=== PATIENT | female | born 1995 | race Two or more races ===

== ENCOUNTER 2016-05-14 21:48 | Emergency (ER) | payer OTHER ==
[~2016-05-14] VITALS: Ht 160 cm; Wt 49.5 kg
[~2016-05-14 21:48] MED LIST: BACTRIM,SEPT1 TABLET PO; BENTYL10 MG PO; CEFDINIR300 MG PO; DELTASONE20 M1 PO; DICYCLOMINE HCL20 MG PO; FERROUS GLUCON324 MG PO; IBUPROFEN800 MG PO; KEFLEX500 MG PO; MACROBID100 MG PO; NOHOMEMEDS; NORCO 5/3251 TABLET PO; PENTASA250 MG PO; PENTASA500 MG PO; PERCOCET 5/31 TABLET PO; PREDNISONE10 MG PO; PRENATAL TABLE1 EAC3 PO; PRENATAL VITAM1 EAC7 PO; TYLENOL EXTRA500 MG PO; TYLENOL PM1 CAPLET PO; TYLENOL WITH C1 EACH PO; ZOFRAN ODT4 MG PO; ZOFRAN4 MG PO
[2016-05-14 22:24] LABS: HEMATOCRIT 36.6 % (36.0-46.0); MCH 30.4 PG (29.0-34.0); MCHC 34.2 G/DL (30.0-36.0); MCV 89.1 FL (83-99); MEAN PLAT.VOLUME 8.4 uM^3 (9.5-12.4); PLATELET COUNT 388 K/uL (156-360); RBC DIS.WIDTH-CV 12.5 % (11.8-14.6); RBC DIS.WIDTH-SD 39.8 % (39-53); RED BLOOD COUNT 4.11 M/uL (3.80-5.20); WHITE BLOOD COUNT 6.7 K/uL (4.1-10.2)
[2016-05-14 22:33] LABS: CHLORIDE 103 mEq/L (99-109); POTASSIUM 3.9 mEq/L (3.7-5.4); SODIUM 135 mEq/L (136-147)
[2016-05-14 22:35] LABS: GLUCOSE 106 mg/dL (70-99)
[2016-05-14 22:36] LABS: ANION GAP 8 MEQ/L (2-14)
[2016-05-14 22:37] LABS: TOTAL BILIRUBIN 0.3 mg/dL (0.0-1.0)
[2016-05-14 22:39] LABS: ALKALINE PHOSPHATASE 49 IU/L (3-129); GFR ESTIMATE (CALCULATED) > 59 mL/min/
[2016-05-14 22:40] LABS: UREA NITROGEN (BUN) 8 mg/dL (9-23)
[2016-05-14 22:47] LABS: QUANTITATIVE HCG < 4.0 MIU/ML
[2016-05-14 23:26] LABS: BILIRUBIN NEGATIVE; BLOOD NEGATIVE; COLOR YELLOW ((YELLOW)); GLUCOSE (STRIP) NEGATIVE; KETONES NEGATIVE; LEUKOCYTES NEGATIVE; NITRITE NEGATIVE; PH, URINE 6.5 (5-8); PROTEIN (STRIP) TRACE; SPECIFIC GRAVITY 1.032 (1.000-1.030)
[2016-05-14 23:28] LABS: ADD MIUA? NO; UCUL ADDED? NO
[2016-05-15] MEDS ORDERED: MIRALAX17 GM PO (00:22)
[2016-05-15] MEDS ORDERED: TRAMADOL HCL50 MG PO (00:22)
[2016-05-15 00:40] VITALS: BP 122/71
== END 2016-05-15 00:42 | disposition home or self-care (01) ==
LOC: EME 21:48
DX: R10.30 Lower abdominal pain, unspecified (principal); T18.3XXA Foreign body in small intestine, initial encounter; K50.90 Crohn's disease, unspecified, without complications; F17.200 Nicotine dependence, unspecified, uncomplicated
CPT/HCPCS: 74020; 80053; 81003; 84702; 85027; 99281; 99284

== ENCOUNTER 2016-07-05 20:22 | Inpatient (IN) | payer OTHER ==
[~2016-07-05] VITALS: Ht 157.5 cm; Wt 46.0 kg
[~2016-07-05 20:22] MED LIST changes: +MIRALAX17 GM PO; +TRAMADOL HCL50 MG PO
[2016-07-05 20:56] LABS: ADD MIUA? YES; BILIRUBIN NEGATIVE; BLOOD NEGATIVE; COLOR YELLOW ((YELLOW)); GLUCOSE (STRIP) NEGATIVE; KETONES NEGATIVE; LEUKOCYTES NEGATIVE; NITRITE NEGATIVE; PROTEIN (STRIP) 30; SPECIFIC GRAVITY 1.019 (1.000-1.030); UROBILINOGEN 0.2 MG/DL (0.2-1.0)
[2016-07-05] MEDS ORDERED: PREDNISONE20 MG PO (21:03)
[2016-07-05 21:04] LABS: HEMATOCRIT 41.7 % (36.0-46.0); MCHC 34.3 G/DL (30.0-36.0); MCV 90.5 FL (83-99); MEAN PLAT.VOLUME 7.9 uM^3 (9.5-12.4); PLATELET COUNT 465 K/uL (156-360); RBC DIS.WIDTH-CV 12.7 % (11.8-14.6); RBC DIS.WIDTH-SD 41.3 % (39-53); RED BLOOD COUNT 4.61 M/uL (3.80-5.20); WHITE BLOOD COUNT 18.7 K/uL (4.1-10.2)
[2016-07-05 21:09] LABS: BACTERIA RARE /HPF; EPITHELIAL CELLS 1+ /HPF; MUCUS TRACE /LPF; RED BLOOD CELLS 0-5 /HPF (0-5); UCUL ADDED? NO; WHITE BLOOD CELLS 0-5 /HPF (0-5)
[2016-07-05 21:12] LABS: CHLORIDE 102 mEq/L (99-109); POTASSIUM 4.6 mEq/L (3.7-5.4); SODIUM 137 mEq/L (136-147)
[2016-07-05 21:14] LABS: GLUCOSE 110 mg/dL (70-99)
[2016-07-05 21:15] LABS: ANION GAP 10 MEQ/L (2-14)
[2016-07-05 21:16] LABS: TOTAL BILIRUBIN 0.3 mg/dL (0.0-1.0)
[2016-07-05 21:17] LABS: ALKALINE PHOSPHATASE 45 IU/L (3-129)
[2016-07-05 21:18] LABS: GFR ESTIMATE (CALCULATED) > 59 mL/min/
[2016-07-05 21:19] LABS: UREA NITROGEN (BUN) 7 mg/dL (9-23)
[2016-07-05 21:36] LABS: QUANTITATIVE HCG < 4.0 MIU/ML
[2016-07-06 02:06] VITALS: BP 117/75
[2016-07-06 07:07] VITALS: BP 121/75
[2016-07-06 09:07] LABS: EOSINOPHIL (%) 0 % (0-5); HEMATOCRIT 43.4 % (36.0-46.0); IMMATURE GRANULOCYTE (%) 0.5 % (0.0-0.7); IMMATURE GRANULOCYTE COUNT 0.1 K/uL; MCH 30.2 PG (29.0-34.0); MCHC 33.4 G/DL (30.0-36.0); MCV 90.4 FL (83-99); MEAN PLAT.VOLUME 8.3 uM^3 (9.5-12.4); MONOCYTE (%) 8.3 % (3-12); MONOCYTE COUNT 1.2 K/uL (0-0.8); NEUTROPHIL (%) 77.8 % (45-76); NEUTROPHIL COUNT 11.4 K/uL (1.8-6.4); PLATELET COUNT 448 K/uL (156-360); RBC DIS.WIDTH-CV 12.9 % (11.8-14.6); RBC DIS.WIDTH-SD 42.2 % (39-53); WHITE BLOOD COUNT 14.7 K/uL (4.1-10.2)
[2016-07-06 09:27] LABS: ANION GAP 9 MEQ/L (2-14); CHLORIDE 98 MEQ/L (99-109); POTASSIUM 5.2 MEQ/L (3.7-5.4); SAMPLE HEMOLYSIS CHECK 0; SAMPLE ICTERIC CHECK 0; SAMPLE LIPEMIA CHECK 0; SODIUM 131 MEQ/L (136-147); TOTAL BILIRUBIN 0.5 MG/DL (0.0-1.0)
[2016-07-06 09:33] LABS: ALKALINE PHOSPHATASE 44 IU/L (3-129); GFR ESTIMATE (CALCULATED) > 59 mL/min/; GLUCOSE 90 mg/dL (70-99); UREA NITROGEN (BUN) 7 mg/dL (9-23)
[2016-07-06 11:38] VITALS: BP 119/72
[2016-07-06 15:54] VITALS: BP 112/71
[2016-07-06 23:15] VITALS: BP 108/55
[2016-07-07 03:34] VITALS: BP 106/59
[2016-07-07 07:10] VITALS: BP 108/62
[2016-07-07 11:37] VITALS: BP 117/63
[2016-07-07 15:49] VITALS: BP 113/69
[2016-07-07 19:34] VITALS: BP 108/67
[2016-07-07 21:43] LABS: ADD MIUA? YES; BILIRUBIN NEGATIVE; BLOOD NEGATIVE; COLOR YELLOW ((YELLOW)); GLUCOSE (STRIP) NEGATIVE; KETONES 5; LEUKOCYTES TRACE; NITRITE NEGATIVE; PROTEIN (STRIP) NEGATIVE; SPECIFIC GRAVITY 1.005 (1.000-1.030); UROBILINOGEN 0.2 MG/DL (0.2-1.0)
[2016-07-07 21:57] LABS: BACTERIA RARE /HPF; EPITHELIAL CELLS RARE /HPF; MUCUS TRACE /LPF; RED BLOOD CELLS 0-5 /HPF (0-5); WHITE BLOOD CELLS 0-5 /HPF (0-5)
[2016-07-07 23:36] VITALS: BP 102/58
[2016-07-08 03:22] VITALS: BP 100/57
[2016-07-08 06:48] LABS: EOSINOPHIL (%) 0 % (0-5); IMMATURE GRANULOCYTE (%) 0.7 % (0.0-0.7); IMMATURE GRANULOCYTE COUNT 0.1 K/uL; INSTRUMENT ABS NEUTROPHIL CT 9.1 K/uL; LYMPHOCYTE COUNT 0.7 K/uL (1.0-2.8); MCH 30.8 PG (29.0-34.0); MCHC 33.1 G/DL (30.0-36.0); MCV 92.8 FL (83-99); MEAN PLAT.VOLUME 8.1 uM^3 (9.5-12.4); MONOCYTE (%) 10.8 % (3-12); MONOCYTE COUNT 1.2 K/uL (0-0.8); NEUTROPHIL (%) 81.8 % (45-76); NEUTROPHIL COUNT 9.1 K/uL (1.8-6.4); PLATELET COUNT 354 K/uL (156-360); RBC DIS.WIDTH-CV 12.7 % (11.8-14.6); RBC DIS.WIDTH-SD 43.5 % (39-53); WHITE BLOOD COUNT 11.1 K/uL (4.1-10.2)
[2016-07-08 06:51] LABS: RED BLOOD COUNT 3.77 M/uL (3.80-5.20)
[2016-07-08 07:18] LABS: ALKALINE PHOSPHATASE 35 IU/L (3-129); ANION GAP 6 MEQ/L (2-14); CHLORIDE 104 MEQ/L (99-109); GFR ESTIMATE (CALCULATED) > 59 mL/min/; GLUCOSE 96 mg/dL (70-99); POTASSIUM 4.5 MEQ/L (3.7-5.4); SAMPLE HEMOLYSIS CHECK 0; SAMPLE ICTERIC CHECK 0; SAMPLE LIPEMIA CHECK 0; SODIUM 136 MEQ/L (136-147); TOTAL BILIRUBIN 0.4 MG/DL (0.0-1.0); UREA NITROGEN (BUN) 7 mg/dL (9-23)
[2016-07-08 07:48] VITALS: BP 103/55
[2016-07-08 11:25] VITALS: BP 96/52
[2016-07-08 16:25] VITALS: BP 104/59
[2016-07-08 23:42] VITALS: BP 100/58
[2016-07-09 07:30] VITALS: BP 101/59
[2016-07-09 07:43] LABS: EOSINOPHIL (%) 0.1 % (0-5); HEMATOCRIT 33.8 % (36.0-46.0); IMMATURE GRANULOCYTE (%) 0.7 % (0.0-0.7); IMMATURE GRANULOCYTE COUNT 0.1 K/uL; LYMPHOCYTE COUNT 0.9 K/uL (1.0-2.8); MCH 30.5 PG (29.0-34.0); MCHC 32.5 G/DL (30.0-36.0); MCV 93.6 FL (83-99); MEAN PLAT.VOLUME 8.1 uM^3 (9.5-12.4); MONOCYTE (%) 9.3 % (3-12); MONOCYTE COUNT 1.1 K/uL (0-0.8); NEUTROPHIL (%) 82.3 % (45-76); PLATELET COUNT 304 K/uL (156-360); RBC DIS.WIDTH-CV 12.8 % (11.8-14.6); RBC DIS.WIDTH-SD 44.1 % (39-53); RED BLOOD COUNT 3.61 M/uL (3.80-5.20); WHITE BLOOD COUNT 12.2 K/uL (4.1-10.2)
[2016-07-09 07:58] LABS: ALKALINE PHOSPHATASE 29 IU/L (3-129); ANION GAP 7 MEQ/L (2-14); CHLORIDE 104 MEQ/L (99-109); GFR ESTIMATE (CALCULATED) > 59 mL/min/; GLUCOSE 112 mg/dL (70-99); MAGNESIUM 1.9 mg/dl (1.3-2.7); POTASSIUM 4.3 MEQ/L (3.7-5.4); SAMPLE HEMOLYSIS CHECK 0; SAMPLE ICTERIC CHECK 0; SAMPLE LIPEMIA CHECK 0; SODIUM 137 MEQ/L (136-147); TOTAL BILIRUBIN 0.3 MG/DL (0.0-1.0); UREA NITROGEN (BUN) 5 mg/dL (9-23)
[2016-07-09 16:00] VITALS: BP 90/50
[2016-07-09 23:01] VITALS: BP 98/63
[2016-07-10 07:20] VITALS: BP 95/61
[2016-07-10 15:35] VITALS: BP 150/95
[2016-07-10 17:02] VITALS: BP 96/57
[2016-07-10] MEDS ORDERED: PREDNISONE20 MG PO (18:02)
[2016-07-10] MEDS ORDERED: PENTASA250 MG PO (18:04)
== END 2016-07-10 18:58 | disposition home or self-care (01) | DRG 330 ==
LOC: EME 20:22 → EDOF 07-06 00:52 → 2EAST 07-06 00:52
PROVIDERS: Surgery
DX: T18.3XXA Foreign body in small intestine, initial encounter (principal); K50.012 Crohn's disease of small intestine with intestinal obstruction; K56.5 Intestinal adhesions [bands] with obstruction (postinfection); E87.1 Hypo-osmolality and hyponatremia; E87.8 Other disorders of electrolyte and fluid balance, not elsewhere classified; Z79.52 Long term (current) use of systemic steroids; F17.200 Nicotine dependence, unspecified, uncomplicated; G89.18 Other acute postprocedural pain
CPT/HCPCS: 71010; 71020; 74177; 80053; 81003; 83735; 84100; 84702; 85025; 85027; 88300; 88305; 88307; 99281; 99285; J0330; J0744; J1100; J1170; J1650; J1720; J1885; J2175; J2270; J2405; J2550; J2710; J3010; J3480; J7030; J7120; J7512; S0030

== ENCOUNTER 2016-12-23 00:15 | Emergency (ER) | payer OTHER ==
[~2016-12-23] VITALS: Ht 160 cm; Wt 50.2 kg
[~2016-12-23 00:15] MED LIST changes: +PREDNISONE20 MG PO
[2016-12-23 00:41] LABS: ADD MIUA? YES; BILIRUBIN NEGATIVE; BLOOD NEGATIVE; COLOR YELLOW ((YELLOW)); GLUCOSE (STRIP) NEGATIVE; KETONES NEGATIVE; LEUKOCYTES NEGATIVE; NITRITE NEGATIVE; PROTEIN (STRIP) 30
[2016-12-23 00:49] LABS: BACTERIA RARE /HPF; EPITHELIAL CELLS 1+ /HPF; MUCUS 4+ /LPF; UCUL ADDED? NO; WHITE BLOOD CELLS 0-5 /HPF (0-5)
[2016-12-23 03:52] VITALS: BP 95/64
[2016-12-23 05:37] LABS: CANDIDA DNA PROBE NEGATIVE; GARDNERELLA DNA PROBE POSITIVE; INTERNAL CONTROL VALID? YES
[2016-12-25 12:07] LABS: CHLAMYDIA TRACHOMATIS NEGATIVE; NEISSERIA GONORRHOEAE NEGATIVE
== END 2016-12-23 03:53 | disposition home or self-care (01) ==
LOC: EME 00:15
PROVIDERS: Physician Assistant
DX: T19.2XXA Foreign body in vulva and vagina, initial encounter (principal); K50.90 Crohn's disease, unspecified, without complications; F17.200 Nicotine dependence, unspecified, uncomplicated
CPT/HCPCS: 81003; 87210; 87480; 87491; 87510; 87591; 87660

== ENCOUNTER 2017-02-09 21:41 | Emergency (ER) | payer OTHER ==
[~2017-02-09] VITALS: Ht 160 cm; Wt 49.6 kg
[2017-02-09 23:11] LABS: ADD MIUA? YES; BILIRUBIN SMALL; BLOOD NEGATIVE; COLOR YELLOW ((YELLOW)); GLUCOSE (STRIP) NEGATIVE; KETONES 5; LEUKOCYTES SMALL; NITRITE NEGATIVE; PROTEIN (STRIP) 30; SPECIFIC GRAVITY 1.031 (1.000-1.030)
[2017-02-09 23:47] LABS: BACTERIA 1+ /HPF; EPITHELIAL CELLS 1+ /HPF; MUCUS 3+ /LPF; RED BLOOD CELLS NONE SEEN /HPF (0-5); UCUL ADDED? NO; WHITE BLOOD CELLS 0-5 /HPF (0-5)
[2017-02-09] MEDS ORDERED: DIFLUCAN150 MG PO (23:49)
[2017-02-10 00:25] VITALS: BP 98/54
== END 2017-02-10 00:26 | disposition home or self-care (01) ==
LOC: EME 21:41
PROVIDERS: Physician Assistant
DX: B37.3 Candidiasis of vulva and vagina (principal)
CPT/HCPCS: 81003; 99281; 99284

== ENCOUNTER → 2017-05-02 01:29 | Emergency (ER) | payer OTHER ==
[~2017-05-02] VITALS: Ht 160 cm; Wt 52.8 kg
[~2017-05-02 01:29] MED LIST changes: +DIFLUCAN150 MG PO; +NAPROSYN500 MG PO
[2017-05-02 01:30] VITALS: BP 118/74
== END | disposition left against medical advice (07) ==
LOC: EME 01:29
DX: N64.4 Mastodynia (principal); Z53.21 Procedure and treatment not carried out due to patient leaving prior to being seen by health care provider

== ENCOUNTER 2017-05-04 01:12 | Emergency (ER) | payer OTHER ==
[~2017-05-04] VITALS: Ht 160 cm; Wt 52.3 kg
[~2017-05-04 01:12] MED LIST changes: -NAPROSYN500 MG PO
[2017-05-04] MEDS ORDERED: NAPROSYN500 MG PO (02:56)
[2017-05-04 03:15] VITALS: BP 119/71
== END 2017-05-04 03:16 | disposition home or self-care (01) ==
LOC: EME 01:12
DX: N64.4 Mastodynia (principal); K50.90 Crohn's disease, unspecified, without complications; F17.200 Nicotine dependence, unspecified, uncomplicated
CPT/HCPCS: 99281; 99284